=== PATIENT | female | born 1955 | race Caucasian/White ===

== ENCOUNTER 2021-10-03 21:08 | Emergency (ER) | payer MEDICARE ==
[~2021-10-03 21:08] MED LIST: AMIODARONE HCL200 MG PO; ASPIRIN EC325 MG PO; ATIVAN0.5 MG PO; K-DUR20 MEQ PO
[2021-10-03 23:13] LABS: BASOPHIL 0.7 % (0-2); EOSINOPHIL 4.2 % (0-7); HCT 42.6 % (37.0-47.0); HGB 13.8 g/dl (12.5-16.0); LYMPHOCYTE 11.6 % (15-48); MCH 28.7 pg (25.0-31.0); MCHC 32.4 g/dL (32.0-36.0); MCV 88.6 fL (78.0-100.0); MONOCYTE 13.5 % (0-12); MPV 9.9 fL (6.0-9.5); NEUTROPHIL 69.6 % (41-80); NRBC 0; PLT 252 K/uL (150-400); RBC 4.81 M/uL (4.20-5.40); RDW 12.8 % (11.5-14.0); WBC 7.4 K/uL (4.0-10.5)
[2021-10-03 23:27] LABS: ALBUMIN 4.1 g/dL (3.4-5.0); BILIRUBIN - TOTAL 0.3 mg/dL (0.2-1.0); BUN/CREAT RATIO (CALC) 29.9 RATIO; CREATININE 0.77 mg/dL (0.51-0.95); POTASSIUM 3.7 mmol/L (3.5-5.1); TOTAL PROTEIN 8.1 g/dL (6.4-8.2)
== END 2021-10-04 03:56 | disposition home or self-care (01) ==
LOC: FER 21:08
PROVIDERS: Emergency Medicine
DX: I48.20 Chronic atrial fibrillation, unspecified (principal); Z88.5 Allergy status to narcotic agent; Z79.82 Long term (current) use of aspirin; Z79.899 Other long term (current) drug therapy
CPT/HCPCS: 36415; 71045; 80053; 84443; 84484; 85025; 93005